=== PATIENT | male | born 1965 | race African-American/Black ===

== ENCOUNTER 2018-05-22 16:17 | Emergency (ER) | payer MEDICAID ==
[~2018-05-22] VITALS: Ht 180.3 cm; Wt 98.4 kg
[2018-05-22 16:32] VITALS: Ht 180.3 cm; Wt 98.4 kg
[2018-05-22 19:58] LABS: microscopic required? YES; urine erythrocyte 1+ (NEGATIVE)
[2018-05-22 20:33] VITALS: BP 133/78
== END 2018-05-22 20:33 | disposition home or self-care (01) ==
LOC: ED 16:17
PROVIDERS: Emergency Medicine
DX: R31.9 Hematuria, unspecified (principal)